=== PATIENT | male | born 1980 | race Hispanic/Latino ===

== ENCOUNTER 2018-03-18 14:41 | Emergency (ER) | payer OTHER, MEDICARE ==
[2018-03-18] MEDS ORDERED: HYDROXYZINE HCL 25 MG TABLET ONE (15:29)
[2018-03-18] MEDS ORDERED: ACETAMINOPHEN EXTRA STRENGTH 500 MG TABLET ONE (15:29)
== END 2018-03-18 16:19 | disposition home or self-care (01) ==
LOC: EDH 14:41
DX: F41.1 Generalized anxiety disorder (principal); G44.209 Tension-type headache, unspecified, not intractable; F12.10 Cannabis abuse, uncomplicated; I10 Essential (primary) hypertension; Z88.6 Allergy status to analgesic agent; Z72.0 Tobacco use

== ENCOUNTER 2019-01-02 09:56 | Emergency (ER) | payer OTHER, MEDICARE ==
[2019-01-02] MEDS ORDERED: BUPIVACAINE/PF 0.5% 30ML VIAL ONE (10:13)
[2019-01-02] MEDS ORDERED: LIDOCAINE HCL-MPF 1% 2ML VIAL ONE (10:24)
[2019-01-02] MEDS ORDERED: CEFTRIAXONE SODIUM 1 GM ONE (10:24)
== END 2019-01-02 11:10 | disposition home or self-care (01) ==
LOC: EDH 09:56
DX: S61.212A Laceration without foreign body of right middle finger without damage to nail, initial encounter (principal); S60.474A Other superficial bite of right ring finger, initial encounter; F32.9 Major depressive disorder, single episode, unspecified; I10 Essential (primary) hypertension; Z90.49 Acquired absence of other specified parts of digestive tract; Z72.0 Tobacco use; Z88.6 Allergy status to analgesic agent; Y04.1XXA Assault by human bite, initial encounter; Y93.89 Activity, other specified; Y92.89 Other specified places as the place of occurrence of the external cause; Y99.8 Other external cause status; F41.9 Anxiety disorder, unspecified
CPT/HCPCS: 64450; 73130; 96372; 99283; J0696; J3490 ×2; 64400

== ENCOUNTER 2019-04-28 17:50 | Inpatient (IN) | payer OTHER, MEDICARE | END 2019-05-02 16:35 | disposition home or self-care (01) | LOC: EDH 17:50 → EDHIP 20:43 → 3CH 21:26 | DX: A41.9 Sepsis, unspecified organism (principal); K57.92 Diverticulitis of intestine, part unspecified, without perforation or abscess without bleeding; F12.10 Cannabis abuse, uncomplicated; F14.10 Cocaine abuse, uncomplicated ==

== ENCOUNTER 2022-06-06 22:48 | Emergency (ER) | payer OTHER, MEDICARE ==
[~2022-06-06] VITALS: Ht 162.6 cm; Wt 89.8 kg
[~2022-06-06 22:48] MED LIST: BUPR-93 PO; CLON1TAB23 PO; ESOM40CA PO
[2022-06-06 23:13] LABS: BASOPHILS % (AUTO) 0.5 % (0.0-5.0); EOSINOPHILS % (AUTO) 1.3 % (0.0-8.0); HEMATOCRIT 44.2 % (42-54); LYMPHOCYTES % (AUTO) 32.5 % (21.0-51.0); MEAN CORPUSCULAR HEMOGLOBIN 30.7 pg (27.0-33.0); MEAN CORPUSCULAR HGB CONC 35.3 g/dL (32.0-36.0); MONOCYTES % (AUTO) 6.6 % (3.0-13.0); NEUTROPHILS % (AUTO) 58.8 % (40.0-77.0); PLATELET COUNT (AUTO) 246 K/uL (130-400); RED BLOOD CELL COUNT(AUTO) 5.08 MIL/uL (4.50-6.20); RED CELL DISTRIBUTION WIDTH 11.9 % (11.0-15.5); WHITE BLOOD COUNT (AUTO) 11.4 K/uL (4.8-10.8)
[2022-06-06 23:32] LABS: ALBUMIN 4.1 g/dL (3.5-5.0); MAGNESIUM 1.8 mg/dL (1.80-2.40); TOTAL PROTEIN, SERUM 7.6 g/dL (6.0-8.3)
[2022-06-06 23:36] LABS: AMPHET/METH SCREEN,URINE NEGATIVE (NEGATIVE); BARBITURATE SCREEN, URINE NEGATIVE (NEGATIVE); BENZODIAZEPINES SCREEN,URINE NEGATIVE (NEGATIVE); CANNABINOID SCREEN,URINE NEGATIVE (NEGATIVE); COCAINE SCREEN,URINE NEGATIVE (NEGATIVE); PHENCYCLIDINE SCREEN,URINE NEGATIVE (NEGATIVE)
[2022-06-06 23:37] LABS: APPEARANCE,URINE CLEAR (CLEAR); BILIRUBIN,URINE NEGATIVE (NEGATIVE); COLOR,URINE YELLOW (YELLOW); GLUCOSE, URINE (UA) NEGATIVE (NEGATIVE); KETONES,URINE 5 mg/dL (NEGATIVE); LEUKOCYTE ESTERASE ,URINE NEGATIVE (NEGATIVE); NITRATE,URINE NEGATIVE (NEGATIVE); OCCULT BLOOD,URINE NEGATIVE (NEGATIVE); PROTEIN,URINE NEGATIVE (NEGATIVE)
[2022-06-06 23:47] LABS: INR 0.93 (0.85-1.15); PROTHROMBIN TIME 10.1 SEC (9.6-11.6)
[2022-06-06 23:49] LABS: PARTIAL THROMBOPLASTIN TIME 27.1 SEC (26.3-35.5)
[2022-06-07] MEDS ORDERED: ACETAMINOPHEN 500 MG TABLET PO ONE
[2022-06-07 00:29] VITALS: BP 134/93
== END 2022-06-07 00:43 | disposition home or self-care (01) ==
LOC: EDH 22:48
DX: F41.0 Panic disorder [episodic paroxysmal anxiety] (principal); R07.89 Other chest pain; E78.00 Pure hypercholesterolemia, unspecified; F32.A Depression, unspecified; F12.90 Cannabis use, unspecified, uncomplicated; I10 Essential (primary) hypertension; Z88.6 Allergy status to analgesic agent; Z90.49 Acquired absence of other specified parts of digestive tract
CPT/HCPCS: 36415; 71045; 80053; 80305; 81003; 83735; 84484; 85025; 85610; 85730; 93005

== ENCOUNTER 2022-09-20 16:09 | Emergency (ER) | payer OTHER, MEDICARE ==
[~2022-09-20] VITALS: Ht 160 cm; Wt 90.7 kg
[2022-09-20 17:15] LABS: BASOPHILS % (AUTO) 0.4 % (0.0-5.0); EOSINOPHILS % (AUTO) 1.5 % (0.0-8.0); HEMATOCRIT 48.4 % (42-54); LYMPHOCYTES % (AUTO) 18.5 % (21.0-51.0); MEAN CORPUSCULAR HEMOGLOBIN 30.4 pg (27.0-33.0); MEAN CORPUSCULAR HGB CONC 34.1 g/dL (32.0-36.0); MEAN CORPUSCULAR VOLUME 89.1 fL (79-99); MONOCYTES % (AUTO) 8.1 % (3.0-13.0); NEUTROPHILS % (AUTO) 71.2 % (40.0-77.0); PLATELET COUNT (AUTO) 222 K/uL (130-400); RED BLOOD CELL COUNT(AUTO) 5.43 MIL/uL (4.50-6.20); WHITE BLOOD COUNT (AUTO) 9.8 K/uL (4.8-10.8)
[2022-09-20 17:24] LABS: CREATININE 1.2 mg/dL (0.5-1.5); POTASSIUM 4.4 mmol/L (3.5-5.1)
[2022-09-20 17:31] LABS: TOTAL PROTEIN, SERUM 7.5 g/dL (6.0-8.3)
[2022-09-20 17:51] LABS: AMPHET/METH SCREEN,URINE NEGATIVE (NEGATIVE); BARBITURATE SCREEN, URINE NEGATIVE (NEGATIVE); BENZODIAZEPINES SCREEN,URINE NEGATIVE (NEGATIVE); CANNABINOID SCREEN,URINE NEGATIVE (NEGATIVE); COCAINE SCREEN,URINE NEGATIVE (NEGATIVE); OPIATE SCREEN,URINE NEGATIVE (NEGATIVE); PHENCYCLIDINE SCREEN,URINE NEGATIVE (NEGATIVE)
[2022-09-20] MEDS ORDERED: HYDROXYZINE 50MG VIAL 50 MG/ML VIAL IM SCH (18:00)
[2022-09-20 19:02] VITALS: BP 126/86
== END 2022-09-20 19:03 | disposition home or self-care (01) ==
LOC: EDH 16:09
DX: F41.9 Anxiety disorder, unspecified (principal); F32.A Depression, unspecified; E78.00 Pure hypercholesterolemia, unspecified; I10 Essential (primary) hypertension; Z88.6 Allergy status to analgesic agent; Z90.49 Acquired absence of other specified parts of digestive tract
CPT/HCPCS: 99285; 71045; 84484; 80053; 80305; 85025; 36415; 96372; 93005; J3410

== ENCOUNTER 2025-05-25 05:43 | Emergency (ER) | payer OTHER, MEDICARE ==
[~2025-05-25] VITALS: Ht 162.6 cm; Wt 86.2 kg
--- NOTE | 2025-05-25 05:57 | ERN ---
ED Note History of Present Illness Stated Complaint: PALPITATIONS, HEADACHE, ANXIETY Chief Complaint: Multiple Complaints Time Seen by MD: 05:49 Dictation: This is a 44-year-old male who presented to the emergency room with complaints of palpitations anxiety and a headache. Apparently he admitted to doing heavy cocaine and smoked cigarettes all night and he began experiencing chest discomfort and mild shortness of breath also. He has had similar episodes after a cocaine binge for chest pain or anxiety. Chest pain is mostly located in the left precordial area and mid central area. He also has a history of gastroesophageal reflux disease and has taken omeprazole in the past No diaphoresis or syncope. Stated that he fell asleep and all these symptoms woke him up. Patient feels that his heart is fluttering that he can feel in the back in the interscapular area he also complains of dizziness Temperature 98.5 pulse 80 respirations 22 blood pressure 150/114 pulse oximetry 98% on room air Anxiety, Depression, Diverticulitis, High Cholesterol, Hypertension, cocaine abuse for a long time Allergies: Coded Allergies: diphenhydramine (Unverified Allergy, Unknown, 05/25/25) RESTLESS LEG ibuprofen (Verified Allergy, Unknown, 04/28/19) Home Meds Active Scripts Esomeprazole Magnesium (Nexium) 40 Mg Capsule.dr, 40 MG PO DAILY for 15 Days, #15 CAP 0 Refills Prov:JEN JIMENEZ MD 06/04/22 Reported Medications Bupropion HCl (Wellbutrin Xl) 150 Mg Tab.er.24h, 150 MG PO HSPRN, TAB 04/29/19 Clonazepam (Clonazepam) 1 Mg Tab.rapdis, 2 MG PO DAILY PRN for ANXIETY, TAB 04/29/19 Past Medical History Past Medical History: Anxiety, Depression, Diverticulitis, High Cholesterol, Hypertension Surgical History: Appendectomy Additional History Comments: No family history of heart problems before the age of 60. Social History: Smokers, Drugs RN Note Reviewed/Agreed w/PFSH: Yes (Cocaine abuse) Review of System Dictation Constitutional: Negative for fever,chills, and weight loss Eyes: Negative for injury, pain,redness, and discharge ENT: Negative for injury,pain or swelling Cardiovascular: Negative for chest pain, positive for palpitations, Respiratory: Negative for shortness of breath, cough, and wheezing, Abdomen/GI: Negative for abdominal pain, nausea, vomiting, diarrhea, and consti pation Back: Negative for injury and pain : Negative for injury, bleeding and discharge MS/Extremity: Negative for injury and deformity Skin: Negative for rash, and discoloration Neuro: Positive for headache, denies weakness, numbness, tingling, and seizure Psych: Negative for suicide ideation, homicidal ideation, and hallucinations positive for anxiety Initial Vital Sign VS Vital Signs Date Time Temp Pulse Resp B/P (MAP) Pulse Ox O2 Delivery O2 Flow Rate FiO2 05/25/25 05:46 98.4 80 22 150/104 98 Room Air 0 05/25/25 06:07 21 Physical Exam Dictation General: awake, alert, NAD appears very anxious Head/Face: Normocephalic, atraumatic, facial plethora Eyes: PERRL, EOMI, vision at baseline ENT: oral cavity clear, TMs clear, no signs of infection Neck: Trachea midline, supple, no nuchal rigidity Cardiovascular: Sinus tachycardia, normal S1/S2, No MRGs, no JVD Respiratory: Decreased breath sounds bilaterally with prolonged expiratory phase Abdomen: Soft, non-tender, non-distended, normal bowel sounds, no guarding or rebound. Skin: Warm, dry, normal turgor, no rash MS/Extremity: Pulses equal, no cyanosis, neurovascular intact, FROM Neuro: COAx4, GCS 15, strength 5/5, CN 2-12 intact, normal cerebellar exam, normal gait, Psych: Normal behavior, mood, and affect normal Extremities-trace edema without any palpable cords, Homans sign is negative Results (Laboratory/Radiology) Laboratory/Radiology Laboratory Tests Test 05/25/25 06:03 White Blood Count 9.9 K/uL (4.8-10.8) Red Blood Count 5.51 MIL/uL (4.50-6.20) Hemoglobin 17.5 g/dL (14.0-18.0) Hematocrit 50.2 % (42-54) Mean Corpuscular Volume 91.1 fL (79-99) Mean Corpuscular Hemoglobin 31.8 pg (27.0-33.0) Mean Corpuscular Hemoglobin Concent 34.9 g/dL (32.0-36.0) Red Cell Distribution Width 11.9 % (11.0-15.5) Platelet Count 232 K/uL (130-400) Mean Platelet Volume 8.4 fL (7.5-10.5) Immature Granulocyte % (Auto) 0.3 % (0-1) Neutrophils (%) (Auto) 63.6 % (40.0-77.0) Lymphocytes (%) (Auto) 25.4 % (21.0-51.0) Monocytes (%) (Auto) 8.5 % (3.0-13.0) Eosinophils (%) (Auto) 1.6 % (0.0-8.0) Basophils (%) (Auto) 0.6 % (0.0-5.0) Neutrophils # (Auto) 6.3 K/uL (1.8-7.7) Lymphocytes # (Auto) 2.5 K/uL (1.0-4.8) Monocytes # (Auto) 0.8 K/uL (0.1-1.0) Eosinophils # (Auto) 0.16 K/uL (0.00-0.70) Basophils # (Auto) 0.06 K/uL (0.00-0.20) Absolute Immature Granulocyte (auto 0.03 K/uL (0-1) Nucleated Red Blood Cells 0.0 % (0.0-0.19) Sodium Level 140 mmol/L (136-145) Potassium Level 4.1 mmol/L (3.5-5.1) Chloride Level 103 mmol/L (101-111) Carbon Dioxide Level 27 mmol/L (21-32) Blood Urea Nitrogen 13 mg/dL (7-18) Creatinine 1.1 mg/dL (0.5-1.3) Glomerular Filtration Rate Calc 84 mL/min (>90) Random Glucose 126 mg/dL (70-105) H Total Calcium 9.0 mg/dL (8.5-10.1) Total Creatine Kinase 258 U/L (21-232) H Troponin I High Sensitivity 6.0 ng/L (4-75) Labs Reviewed?: Yes EKG Comment: Twelve lead EKG done on 05/25/2025 at 5:56 a.m. showed a heart rate of 69, MD interval 172, QRS 89, QT/QTC 367/395. Impression normal sinus rhythm with a left atrial enlargement, LVH, very prominent T-waves in the lateral leads. This was compared to the old EKG on 03/12/2024 which shows exactly the same changes as the current EKG. EKG rhythm strip shows normal sinus rhythm with no acute changes. Interpreted by ER MD Dr. Muir ED Course ED Course Orders Procedure Category Date Status Time Cardiac Panel LAB 05/25/25 Complete 05:50 Cbc With Differential LAB 05/25/25 Complete 05:50 Basic Metabolic Panel LAB 05/25/25 Complete 05:50 12 Lead Ekg Tracing- EKG 05/25/25 Complete Technical 05:50 Aspirin 325mg Ec Tab PHA 05/25/25 Complete (Aspirin 325mg Ec T 06:00 Chest 1vw RAD 05/25/25 Resulted 06:00 Nitroglycerin 0.4mg PHA 05/25/25 Complete Sl Tab (Nitrostat) 06:00 Morphine 4mg Syg PHA 05/25/25 Complete (Morphine 4mg Syg) 06:00 Ondansetron 4mg Inj PHA 05/25/25 Complete (Zofran 4mg Inj) 06:00 0.9% Nacl 500ml PHA 05/25/25 Complete Iv.Soln (Ns 500ml 06:00 Alprazolam 1mg (Xanax PHA 05/25/25 Complete 1mg) 07:00 Current Medications Medications (Trade) Dose Ordered Sig/Kiki Route PRN Reason Start Time Stop Time Status Last Admin Dose Admin Alprazolam (XANax 1MG) 1 mg ONCE ONCE PO 05/25/25 07:00 05/25/25 07:01 DC 05/25/25 06:55 Aspirin (Aspirin 325mg Ec Tab) 325 mg ONCE ONCE PO 05/25/25 06:00 05/25/25 06:05 DC 05/25/25 06:16 Morphine Sulfate (morPHINE 4MG SYG) 4 mg ONCE ONCE IVP 05/25/25 06:00 05/25/25 06:05 DC 05/25/25 06:28 Nitroglycerin (Nitrostat) 0.4 mg Q5M PRN SL CHEST PAIN 05/25/25 06:00 05/25/25 07:55 DC Ondansetron HCl (zoFRAN 4MG INJ) 4 mg ONCE ONCE IVP 05/25/25 06:00 05/25/25 06:05 DC 05/25/25 06:16 Sodium Chloride 500 ml @ 0 mls/hr ONCE ONCE IV 05/25/25 06:00 05/25/25 06:05 DC 05/25/25 06:16 Vital Signs Date Time Temp Pulse Resp B/P (MAP) Pulse Ox O2 Delivery O2 Flow Rate FiO2 05/25/25 07:34 98.4 67 18 157/88 97 Room Air* 0 21 05/25/25 06:42 67 16 143/100 97 Room Air* 0 21 05/25/25 06:07 98.6 70 20 169/110 96 Room Air* 0 21 05/25/25 05:46 98.4 80 22 150/104 98 Room Air 0 We will perform diagnostic labs, and administer medications according to the patient's complaint. Once the results are available, will review and personally interpreted the labs to rule out any acute life-threatening emergency the trach require immediate intervention and treatment. I will then re-evaluate the patient after treatment and diagnostic exams have return to determine whether the patient requires any further testing, can safely be discharged home or need further admission to hospital for additional treatment and evaluation. 6:35 a.m. labs reviewed CBC is with a normal limits BNP 7 showed a creatinine of 1.1 1st set of troponins is 6 HEART Score Response (Comments) Value History: Moderate suspicion (+1) 1 EKG: Repolarization changes 1 Age: 45-65yrs (+1) 1 Risk Factors: 1-2 risk factors (+1) 1 Initial Troponin: Normal limit (0) 0 HEART Score Risk: Mod Risk for MACE (4-6) Total 4 Medical Decision Making MDM Differential diagnosis: Sinusitis, recreational drug intoxication, sepsis, coronary event, panic attack Rationale: Tests considered and ordered secondary to shared decision making include: Previous outside records reviewed: Old ER visits. Risk of complication and/or morbidity or mortality of patient management: None Medications-Per medication reconciliation Need for hospitalization: Patient does not meet criteria for hospitalization. Need for emergency major/minor surgery: No There are no social concerns with this patient. Prescription drug management Prescriptions will include symptomatic care Patient's prior external medical records from other ER visits were reviewed by me as indicated. Prior testing and results from previous visits were reviewed. Prior tests were taken into account with medical decision making and resource utilization, independent historian/historians were used to obtain complete medical history. I independently interpreted the test that were performed, results were reviewed by me and considered findings on radiology if ordered. Medical management and examination interpretation discussions were had by me with other qualified healthcare professionals as indicated for the patient's care. Problem List Problem List: (1) Headache (2) Panic anxiety syndrome (3) Cocaine abuse (4) Chest pain (5) GERD (gastroesophageal reflux disease) (6) Lung problems from crack cocaine DX & DISP Disposition: Discharge Departure Impression: Primary Impression: Panic anxiety syndrome Additional Impressions: Cocaine abuse, Headache, Chest pain, GERD (gastroesophageal reflux disease), Lung problems from crack cocaine Condition: Stable Additional Instructions: Patient and the caregiver have been informed of all the diagnostic tests and the imaging conducted during the today's visit to the emergency room and has verbalized understanding of the results I have personally reviewed and interpreted all diagnostic exams performed here in the ER today as well as the vital signs documented by the nursing staff. The patient is now being discharged to home and should follow up with the primary care physician or the specialist as directed by the ER staff. Follow-up with primary care provider in 1 to 2 days. Take medications as directed here in the emergency room. Okay to continue home medications unless otherwise discussed during your visit in the emergency room today. Return to your nearest emergency room if symptoms worsen or if there is no improvement. Call 911 if you need immediate assistance. Take Tylenol or Motrin [id number] as needed and if no contraindications are present. Increase oral hydration. A wound culture or urine culture was ordered here in the emergency room department please follow-up with primary care provider and advise them to get repeat ports from our facility. If you had any [place] wrap/splints that were applied here, please do not remove them until you see your primary care or specialty. Referrals: SALVADOR SOMMERS MD (PCP) EDUARD MUIR MD May 25, 2025 05:57
[2025-05-25] MEDS ORDERED: NITROGLYCERIN 0.4 MG SL TAB SL PRN (06:00)
[2025-05-25 06:11] LABS: IMMATURE GRANULOCYTE ABSOLUTE 0.03 K/uL (0-1); NUCLEATED RED BLOOD CELLS 0.0 % (0.0-0.19); PLATELET COUNT (AUTO) 232 K/uL (130-400); RED BLOOD CELL COUNT(AUTO) 5.51 MIL/uL (4.50-6.20); RED CELL DISTRIBUTION WIDTH 11.9 % (11.0-15.5); WHITE BLOOD COUNT (AUTO) 9.9 K/uL (4.8-10.8)
[2025-05-25] MEDS: 0.9% NACL 500ML IV.SOLN 500 ML IV ONE (06:16)
[2025-05-25] MEDS: ASPIRIN 325MG EC TAB PO ONE (06:16)
[2025-05-25 06:28] LABS: CREATINE KINASE, TOTAL 258.0 U/L (21-232); CREATININE 1.1 mg/dL (0.5-1.3); GLOMERULAR FILTR. RATE CALC 84.0 mL/min (>90); GLUCOSE,RANDOM 126.0 mg/dL (70-105); SODIUM SERUM 140.0 mmol/L (136-145); UREA NITROGEN, BLOOD 13.0 mg/dL (7-18)
--- NOTE | 2025-05-25 06:46 | EKG ---
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
--- NOTE | 2025-05-25 07:22 | HMCIMG ---
EXAM: CR Chest, 1 View. CLINICAL HISTORY: chest pain COMPARISON: 09/20/22 17:31 EST CR - CHEST 1VW FINDINGS: LUNGS: The lungs show no infiltrate or other acute finding. PLEURAL SPACES: No evidence of pleural effusion or pneumothorax. MEDIASTINUM: The cardiomediastinal silhouette is within normal limits. BONES: No aggressive appearing osseous lesion seen. IMPRESSION: No acute cardiopulmonary pathology is evident. /[place]
[2025-05-25 07:34] VITALS: BP 157/88; PULSE 67; RESP 18; TEMP 98.4; O2SAT 97
--- NOTE | 2025-05-25 07:53 | NUR ---
0725 INFORMED PT A URINE SAMPLE IS DUE, PT STATED HE DOES NOT WANT TO GIVEN URINE STATED HE HAS COCAINE IN HIS SYSTEM AND DOES NOT WANT THAT CHARTED IN HIS RECORD. PT AT THIS TIME REFUSED SAMPLE. INFORMED DR. GUIDRY.
== END 2025-05-25 07:55 | disposition home or self-care (01) ==
LOC: EDH 05:43
DX: F41.0 Panic disorder [episodic paroxysmal anxiety] (principal); F14.10 Cocaine abuse, uncomplicated; K21.9 Gastro-esophageal reflux disease without esophagitis; J68.9 Unspecified respiratory condition due to chemicals, gases, fumes and vapors; R51.9 Headache, unspecified; R07.89 Other chest pain; E78.00 Pure hypercholesterolemia, unspecified; F32.A Depression, unspecified; I10 Essential (primary) hypertension; F17.200 Nicotine dependence, unspecified, uncomplicated; Z88.6 Allergy status to analgesic agent; Z90.49 Acquired absence of other specified parts of digestive tract; Z79.899 Other long term (current) drug therapy
CPT/HCPCS: 99285; 96374; 71045; 96375; 82550; 84484; 80048; 85025; 36415; 93005; J7040; J2405; J2270